=== PATIENT | male | born 1955 | race Caucasian/White ===

== ENCOUNTER → 2016-09-17 | Outpatient (CLI) | payer OTHER, MEDICARE ==
[~2016-09-17] VITALS: Ht 177.8 cm; Wt 96.7 kg
[~2016-09-17] MED LIST: ADULT LOW DOSE81 MG PO; ALPRAZOLAM 0.50.5 M1 PO; AMITRIPTYLINE H25 M2 PO; AMITRIPTYLINE H50 M2 PO; AMITRIPTYLINE H50 M3 PO; AMLODIPINE BESYL5 MG PO; ANDROGEL1.25 GM TD; ASA5UEC PO; AZOR 10-20 MG1 EACH PO; AZOR 10-40 MG1 EACH; BENICAR40 MG PO; BONIVA150 MG PO; BYSTOLIC 5 MG5 M1 PO; CARBAMAZEPINE200 M2 PO; CLONAZEPAM 1 MG1 M1 PO; DOLOPHINE HCL5 MG PO; FENOFIBRATE PO; FENOFIBRATE160 MG PO; FISH OIL 1,001000 M2; FISHOIL PO; HYDROCHLOROTHIA25 M2 PO; HYDROCODON-ACE1 EACH PO; HYDROCODONE-AP1 EAC2 PO; IRBESARTAN300 MG PO; METHADONE HCL5 MG PO; METRONIDAZOLE IV; MIRTAZAPINE45 MG PO; MULTIVITAMINS PO; NASONEX17 GM INH; NASONEX17 GM NS; NORCO 5-325 TA1 EACH PO; NORVASC10 MG PO; OMEPRAZOLE 20 M20 M1 PO; ONDANSETRON HCL4 M3 PO; PAROXETINE HCL20 MG PO; PAROXETINE HCL40 MG PO; PERCOCET 5-3251 EACH PO; PLAVIX 75 MG TA75 MG PO; PRAVACHOL40 MG PO; PRILOSEC 20 MG20 MG PO; ROCEPHIN 1 GM VL1 G1 IV; VITAMIN D35000 UNI1 PO; ZOCOR 20 MG TAB20 M1 PO; ZYPREXA5 MG PO
--- NOTE | ~2016-09-17 | HPC ---
[facility] [place] [address] PAIN MANAGEMENT CONSULTATION Name: MERCY COOK [facility] [id number] Admission: 09/17/16 Attend Phys: Georges Poole MD Discharge: Date of : 51 Report #: [id number] THIS REPORT FOR: //name// CC: Kyara Poole DATE OF REGISTRATION: 09/17/2016. Followup visit for atypical facial pain, trigeminal neuralgia. The patient returns to pain clinic for medication. I have been providing medication now for several years. This medication is working well. He denies any significant side effects. His current dose of medications, methadone 5 mg taken once a day. He reports to me today his pain is a 6, that is a fairly steady number for him. It never goes away completely, it is a chronic discomfort and numbness and aching on the right side of his face, cheek and eye. SOCIAL HISTORY: The patient is disabled. He reports to me that close relative just killed himself and I offered emotional support today during clinic. PHYSICAL EXAMINATION: VITAL SIGNS: Blood pressure 161/80, heart rate 62. BMI is 30.6. Tenderness across the area of the right cheek bone in the V2 distribution is noted. Only mild allodynia. IMPRESSION: 1. Chronic intractable facial pain with features of trigeminal neuralgia. There does have some atypical facial pain as well, but all appears to be neuropathic. 2. Management of high risk medication. I renewed his small dose per day of methadone under terms of our opioid agreement, we reviewed that agreement as well as CDC guidelines today. Followup visit planned in 3 months. By: [id number] [id number] Georges Poole MD /nt
[2016-09-17 13:29] VITALS: BP 161/88
== END | disposition home or self-care (01) ==
LOC: PAIN 07:31
DX: G50.0 Trigeminal neuralgia (principal); G89.29 Other chronic pain; Z87.891 Personal history of nicotine dependence

== ENCOUNTER → 2016-12-20 | Outpatient (CLI) | payer OTHER, MEDICARE ==
[~2016-12-20] VITALS: Ht 177.8 cm; Wt 99.1 kg
--- NOTE | ~2016-12-20 | HPC ---
[facility] [place] [address] [place] [address] PAIN MANAGEMENT CONSULTATION Name: MERCY COOK Room #: REG CL Josh#: [id number] Admission: 12/20/16 Attend Phys: Georges Poole MD Discharge: Date of : 51 Report #: [id number] THIS REPORT FOR: //name// CC: Kyara Poole DATE OF SERVICE: 12/20/2016 DATE OF REGISTRATION: 12/20/2016 Followup visit for atypical facial pain and trigeminal neuralgia. This is a followup visit for the patient who was quite stable on his current dose of medication. He has had no significant changes in his health history since I last saw him on 09/17/2016. Under terms of our opioid agreement, he receives methadone 5 mg per day, clonazepam 1 mg per day. Takes amitriptyline 50 mg at bedtime. This combination has done a nice job of quieting the nerve pain in his face and he reports that his pain score today is a 4/10. It still is exacerbated by changes in weather and stress, but he is currently satisfied with his treatment. We reflected back on when he first came to the clinic. He was very anxious, catastrophic and his pain was poorly controlled. He has now been on medication under terms of our agreement since 2010 and we have reduced his methadone dose over those years. PHYSICAL EXAMINATION: GENERAL: He is pleasant, alert and oriented; shows no signs of anxiety, depression or ____ medication. VITAL SIGNS: His blood pressure is 137/87, heart rate 60 and BMI is 33.3. There is no facial allodynia or discomfort today. IMPRESSION: 1. Atypical facial pain with features of trigeminal neuralgia. 2. Management of high risk medication. PLAN: Follow up in the pain clinic in 3 months. Medications were renewed as described above. By: [id number] Georges Poole MD /nt
[2016-12-20 14:32] VITALS: BP 137/87
== END ==
LOC: PAIN 07:26
DX: G50.0 Trigeminal neuralgia (principal); Z87.891 Personal history of nicotine dependence

== ENCOUNTER → 2017-06-27 | Outpatient (CLI) | payer OTHER, MEDICARE ==
[~2017-06-27] VITALS: Ht 177.8 cm; Wt 93.0 kg
--- NOTE | ~2017-06-27 | HPC ---
[facility] [place] [address] [address] [place] [address] PAIN MANAGEMENT CONSULTATION Name: SAUD COOK Room #: REG [facility] Julia.#: [id number] Admission: 06/27/17 Attend Phys: Georges Poole MD Discharge: Date of : 51 Report #: [id number] THIS REPORT FOR: //name// CC: Kyara Poole DATE OF SERVICE: 06/27/2017 Followup visit for chronic headaches and atypical facial pain with features of trigeminal neuralgia. This is a routine followup visit for Saud whom I see at 3-month intervals. He has been on a stable dose of methadone 5 mg once daily, amitriptyline 50 mg at bedtime and clonazepam 1 mg now for several years. We initially started him on methadone before 2012 and found that he has been able to completely manage his pain without hospitalization or ER visits. He remains active. Review of his functional score today shows that he has minimal impact. His highest score is 5/10. He is at very low risk for addiction. He reports today that he is continuing to do well. Pain is oftentimes increased by stress and he has noted that cold weather striking his face will trigger his trigeminal pain. He does not smoke nor use alcohol. PHYSICAL EXAMINATION: VITAL SIGNS: Blood pressure is 146/85, heart rate 65, respirations 16. BMI is 29.4. He has minimal discomfort and no allodynia today. IMPRESSION: 1. Chronic atypical facial pain with features of trigeminal neuralgia. 2. Management of high risk medications under the terms of written opioid agreement. PLAN: 1. Methadone was renewed at 5 mg once daily. This calculates to a morphine milligram equivalent of 20 MME. 2. Renew amitriptyline 50 mg at bedtime for chronic pain, depression and anxiety. 3. Use of benzodiazepine and clonazepam is controversial; however, he has been on it now for treatment of his psychiatric issues and depression for roughly 5 years or more while continuing on an opioid with no complications or evidence of oversedation. We will continue it as I believe that plays a role in his wellness and overall wellbeing. [address] [address] PAIN MANAGEMENT CONSULTATION Name: COOKSAUD Room #: REG CLThelma Dumont.#: [id number] Admission: 06/27/17 Attend Phys: Georges Poole MD Discharge: Date of : 51 Report #: [id number] I talked about remaining active and engaged in diversion activities. I plan to see him back in the pain clinic in followup in 3 months. <ELECTRONICALLY SIGNED> By: Georges Poole MD 07/17/17 1640 [id number] Georges Poole MD /nt
[2017-06-27 09:55] VITALS: BP 146/85
== END ==
LOC: PAIN 06:53
DX: G89.29 Other chronic pain (principal); G50.0 Trigeminal neuralgia; F11.90 Opioid use, unspecified, uncomplicated

== ENCOUNTER → 2017-09-26 | Outpatient (CLI) | payer OTHER, MEDICARE ==
[~2017-09-26] VITALS: Ht 177.8 cm; Wt 92.4 kg
--- NOTE | ~2017-09-26 | HPC ---
[facility] [place] [address] [address] [place] [address] PAIN MANAGEMENT CONSULTATION Name: MERCY COOK [facility] #: [facility] [id number] Admission: 09/26/17 Attend Phys: Georges Poole MD Discharge: Date of : 51 Report #: [id number] THIS REPORT FOR: //name// CC: Kyara Poole DATE OF SERVICE: 09/26/2017 The patient returns to pain clinic today for renewal of his medication. He has chronic headaches and atypical facial pain as well as some features of trigeminal neuralgia. We are fortunate that he has been treated very effectively with one 5 mg methadone tablet taken daily. He has been on this medication through our clinic now for over 5 years with no difficulties, no misuse, abuse, no lost prescriptions. Overall, he credits most of his improvement to the methadone. He in addition is given amitriptyline 50 mg at bedtime, which may be helpful for neuropathic pain. He has an anxiety disorder and sleep problems and has used clonazepam chronically at 1 mg at bedtime with no problems. We reviewed his MME at 20. He would like to continue on his medication. PHYSICAL EXAMINATION: His blood pressure 146/85, heart rate 65, BMI is 29. He has no discomfort or allodynia of the face. He chews without difficulty. There is no difficulty or tenderness of the temporomandibular joint. IMPRESSION: 1. 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 2. Chronic intractable pain syndrome with medication management utilizing methadone. 3. History of depression and anxiety, stable at this point. PLAN: I will continue his methadone and 3 months of medication were provided. I have also ordered for him his amitriptyline and clonazepam, which I have provided for him on a chronic basis. He is doing well. Followup visit planned in 3 months. By: [id number] Georges Poole MD /nt
[2017-09-26 10:09] VITALS: BP 144/84
== END ==
LOC: PAIN 05:36
DX: G89.4 Chronic pain syndrome (principal); G50.1 Atypical facial pain; F41.9 Anxiety disorder, unspecified; F32.9 Major depressive disorder, single episode, unspecified

== ENCOUNTER → 2018-03-27 | Outpatient (CLI) | payer OTHER, MEDICARE ==
[~2018-03-27] VITALS: Ht 177.8 cm; Wt 99.7 kg
--- NOTE | ~2018-03-27 | HPC ---
[facility] [address] [address] PAIN MANAGEMENT CONSULTATION Name: MERCY COOK [facility] #[facility] [id number] Admission: 03/27/18 Attend Phys: Shireen Ruby Discharge: Date of : 51 Report #: [id number] THIS REPORT FOR: //name// CC: Shireen Poole MD DATE OF SERVICE: 03/27/2018 REASON FOR THE VISIT TODAY: Followup for his trigeminal neuralgia. HISTORY OF PRESENT ILLNESS: This gentleman returns today for a renewal of his medication management, methadone, which he takes 5 mg once a day. He tells me that it is very beneficial and helping with his trigeminal neuralgia. He tells me that he takes it in the morning because he is able to sleep at night without difficulties. He tells me that his average pain score is 3-4 with his medications. The weather does make it worse and stress, but the medications are very helpful for his constant achy pain in the right side of his face, cheek and eye. His morphine milliequivalents of his methadone is 20 milliequivalents, which we converted today. ALLERGIES: THE PATIENT IS ALLERGIC TO BONIVA. MEDICATIONS: The patient's current medicine methadone 5 mg daily, clonazepam 1 mg daily, amitriptyline 50 mg at bedtime, Zofran as needed, Norvasc 10 mg daily, HCTZ 25 mg daily, irbesartan 300 mg daily, vitamin D3 daily, Paxil 20 mg at bedtime, multivitamin, pravastatin 40 mg at bedtime, Plavix 75 mg daily and a baby aspirin daily. PQRS: The patient's PQRS, 1. He denies osteoarthritis or rheumatoid arthritis. 2. Height 5 feet 10 inches, weight 219. 3. BMI is 31.5. 4. Vital signs: Blood pressure 150/84, pulse is 62, respirations 16, oxygen level is 98%. 5. Pain score is 3-4. 6. Fall risk. Denies dizziness, does not need help walking or standing and has not fallen in the last 3 months. 7. The patient is on Plavix for a blood thinner and does have a history of hypertension. 8. Opioid therapy greater than 6 weeks with opioid signed contract on the chart. 9. His risk assessment tool is low and his functional assessment . 10. The patient denies recreational drug use. He is a former smoker and does not drink alcohol. [facility] [address] [place] [address] PAIN MANAGEMENT CONSULTATION Name: MERCY COOK Room #: REG CL Josh#: [id number] Admission: 03/27/18 Attend Phys: Shireen Ruby Discharge: Date of : 51 Report #: [id number] We checked the [facility] Prescription Drug Monitoring Program and the patient is filling appropriate medications only from Dr. Georges Poole at 1 pharmacy. It was also noted that a drug screen had been several years ago, so we will obtain a buccal specimen today to check his drug screen. The patient is agreeable with this. PHYSICAL EXAMINATION: GENERAL: This is a well-developed, well-nourished 62-year-old gentleman that appears his stated age. Neurologic: Mild to light allodynia along the right side of his face in a V2 distribution from his right eye into his cheek and to his lip. IMPRESSION: 1. Atypical facial pain with trigeminal neuralgia this involves the second division of the trigeminal nerve. 2. 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 3. History of depression and anxiety, stable on medications. We reviewed the fact that opiate medications are being used to provide analgesia adequate to support activities of daily living, not attempting to achieve a specific pain score on the 0-10 Visual Analog Scale. The current opiate medications are providing sufficient analgesia to allow the patient to participate in activities of daily living. The patient is not exhibiting any aberrant behavior suggestive of drug diversion. The patient is not having any adverse reactions to medications. The patient is not suffering from daytime somnolence or mental acuity changes. The patient is managing opiate-induced constipation with appropriate ejhe-qwq-nxcoqzn agents and dietary considerations. The patient was counseled on concern for caution with operating a motor vehicle while using opiate medications. A physical exam was performed and the patient's functional status was evaluated. All patients with back pain were advised against the bed rest greater than 4 days and were advised to return to normal activities. Pain score assessment was noted and the treatment plan was reviewed with the patient. All current medications, both prescribed and OTC were reviewed and reconciled on the electronic medical record. Tobacco screening was accomplished and smoking cessation was advised when indicated. BMI was noted and diet/exercise modification was recommended for all patients following outside normal parameters. I reviewed with the patient today their responsibilities to safeguard prescription medications, reviewed their responsibility to utilize medications only as prescribed by the physician. They are to seek and receive pain medications only from 1 physician group ([facility]). They are to use 1 pharmacy and keep the clinic informed if they change pharmacies. Their responsibilities include making followup visits in a timely fashion and to avoid [facility] [address] [place] [address] PAIN MANAGEMENT CONSULTATION Name: MERCY COOK Room #: REG CLThelma Moreno#: [id number] Admission: 03/27/18 Attend Phys: Shireen Ruby Discharge: Date of : 51 Report #: [id number] abrupt discontinuation of medication usage. Their responsibilities further include bringing their medications (bottles from the pharmacy with residual pills) to the visit for possible confirmation of pill counts and the patient understands it is their responsibility to submit to random drug screens to ensure both that the medications prescribed are present, and that no other controlled substances are present. All prescriptions provided today were generated electronically. PLAN: 1. The patient was seen today for refill of his opioid medicine, methadone. The patient takes 5 mg 1 tablet in the morning. This controls his pain. The patient would like a refill of this medication. The patient was provided methadone 5 mg #30 to be released today in 4-week and an 8-week, also given a script of clonazepam 1 mg #90 with one additional refill for 3-month supply. No Elavil was needed today. He has refills of that medication. 2. The patient was screened using the buccal swabs for his drug use. There has not been one on the chart for a while, so we would like to have a yearly drug screen on him. The patient was agreeable with that and provided us with the specimen today. 3. The patient will be seen in 3-month followup by myself and then after that he will see Dr. Georges Poole again unless he needs to see us earlier if symptoms arise. 4. The patient seen in collaboration today with Dr. Georges Poole. <ELECTRONICALLY SIGNED> By: Shireen Ruby 03/31/18 0721 [id number] Shireen Ruby /denita
[2018-03-27 09:40] VITALS: BP 150/84
== END ==
LOC: PAIN 06:16
DX: G50.0 Trigeminal neuralgia (principal); G50.1 Atypical facial pain; G89.4 Chronic pain syndrome; F32.9 Major depressive disorder, single episode, unspecified; F41.9 Anxiety disorder, unspecified

== ENCOUNTER → 2018-06-26 | Outpatient (CLI) | payer OTHER, MEDICARE ==
[~2018-06-26] VITALS: Ht 177.8 cm; Wt 97.6 kg
[2018-06-26 12:37] VITALS: BP 161/86
--- NOTE | 2018-06-26 12:41 | NUR ---
Pain Clinic Assessment: 1. History of Osteoarthritis: NONE History of Rheumatoid Arthritis: NONE 2. Height: 5 ft. 10 in. 177.8 cm. Weight: 215.2 lb. oz. 97.614 kg. Patient's BMI: 30.9 3. Vital Signs: BP: 161/86 Pulse: 69 Resp: 18 Temp: 02 Sat: 96 ECG Mon: 4. Pain Intensity: 5 5. Fall Risk: Dizziness: N Needs help standing or walking: N Fallen in the last 3 months: N Fall risk comments: 6. Patient on Blood Thinner: Clopidogrel Bisulf(Plavix 7. History of Hypertension: Y 8. Opioid Therapy greater than 6 weeks: Y Opiate Contract Signed: 09/16/14 9. Risk Assessment Tool Provided: LOW RISK 05/22 10. Functional Assessment Tool: 11. Recreational Drug Use: Never Drug Type: Tobacco Use: Former Smoker Tobacco Type: Amount or Packs/day: How Many Years: Alcohol Use: No Frequency: Quant:
--- NOTE | 2018-06-27 09:43 | HPC ---
[facility] [place] [address] PAIN MANAGEMENT CONSULTATION Name: MERCY COOK [facility] #: [facility] [id number] Admission: 06/26/18 Attend Phys: Shireen Ruby Discharge: Date of : 51 Report #: [id number] THIS REPORT FOR: //name// CC: Shireen Belle DATE OF SERVICE: 06/26/2018 CHIEF COMPLAINT: Trigeminal neuralgia. HISTORY OF PRESENT ILLNESS: This is a very pleasant gentleman, 62-year-old, who returns to the pain clinic for his right cheek and mouth pain from his trigeminal neuralgia. He rates his pain score as 5/10 today. He tells me that the weather changes make it worse as well as stress, but the medications are very helpful for his constant, aching pain. He says that the methadone is very helpful and would like a refill of that today. ALLERGIES: BONIVA. CURRENT MEDICATIONS: Methadone 5 mg daily, clonazepam 1 mg daily, amitriptyline 50 mg at bedtime, amlodipine 10 mg daily, hydrochlorothiazide 25 mg daily, Irbesartan 300 mg daily, vitamin D3 daily, Paxil 20 mg at bedtime, multivitamin daily, pravastatin 40 mg at bedtime, Plavix 75 mg daily and aspirin 81 mg daily. PQRS: 1. He denies osteoarthritis or rheumatoid arthritis. 2. Height is 5 feet 10, weight is 215 and BMI is 30.9. 3. Vital signs 161/86, pulse is 69, respirations 18 and oxygen sat is 96. 4. Pain score is 5/10. 5. He denies dizziness. He does not need help walking or standing. He has not fallen in the last 3 months. 6. He is on Plavix and does take hypertension medicines. 7. Opioid therapy is greater than 6 weeks; therefore, an opioid signed contract is on the chart. The patient's risk assessment tool is low. His functional assessment is 17/70. 8. Recreational drug use, he denies. He is a former smoker and does not drink alcohol. We did check the prescription monitoring system. The patient is filling appropriately from Dr. Georges Poole, with no aberrant behaviors noted. He has a drug screen from past March. PHYSICAL EXAMINATION: GENERAL: This is a well-developed, well-nourished and well-hydrated 62-year-old gentleman, who appears his stated age. He is alert and orientated and is a well historian. NEUROLOGIC: Htpv-bn-xydvo allodynia along the right side of his face, from his right eye to his cheek. [address] [address] PAIN MANAGEMENT CONSULTATION Name: MERCY COOK Room #: REG [facility] Josh#: [id number] Admission: 06/26/18 Attend Phys: Shireen Ruby Discharge: Date of : 51 Report #: [id number] MUSCULOSKELETAL: The patient has no problems with musculoskeletal. He is able to move about freely without any difficulty. IMPRESSION: 1. Atypical facial pain with trigeminal neuralgia. 2. Chronic intractable pain syndrome, with methadone management for neuropathic symptoms. 3. History of depression and anxiety, stable with his current medication regimen. We reviewed the fact that opiate medications are being used to provide analgesia adequate to support activities of daily living, not attempting to achieve a specific pain score on the 0-10 Visual Analog Scale. The current opiate medications are providing sufficient analgesia to allow the patient to participate in activities of daily living. The patient is not exhibiting any aberrant behavior suggestive of drug diversion. The patient is not having any adverse reactions to medications. The patient is not suffering from daytime somnolence or mental acuity changes. The patient is managing opiate-induced constipation with appropriate ufeo-box-hxlhyol agents and dietary considerations. The patient was counseled on concern for caution with operating a motor vehicle while using opiate medications. A physical exam was performed and the patient's functional status was evaluated. All patients with back pain were advised against the bed rest greater than 4 days and were advised to return to normal activities. Pain score assessment was noted and the treatment plan was reviewed with the patient. All current medications, both prescribed and OTC were reviewed and reconciled on the electronic medical record. Tobacco screening was accomplished and smoking cessation was advised when indicated. BMI was noted and diet/exercise modification was recommended for all patients following outside normal parameters. I reviewed with the patient today their responsibilities to safeguard prescription medications, reviewed their responsibility to utilize medications only as prescribed by the physician. They are to seek and receive pain medications only from 1 physician group ( [facility]). They are to use 1 pharmacy and keep the clinic informed if they change pharmacies. Their responsibilities include making followup visits in a timely fashion and to avoid abrupt discontinuation of medication usage. Their responsibilities further include bringing their medications (bottles from the pharmacy with residual pills) to the visit for possible confirmation of pill counts and the patient understands it is their responsibility to submit to random drug screens to ensure both that the medications prescribed are present, and that no other controlled substances are present. All prescriptions provided today were generated electronically. [address] [address] PAIN MANAGEMENT CONSULTATION Name: MERCY COOK Room #: REG DENNY DumontSridhar#: [id number] Admission: 06/26/18 Attend Phys: Shireen Ruby Discharge: Date of : 51 Report #: [id number] PLAN: 1. We discussed treatment options with this patient today. He tells me that he has been doing fairly well with his current methadone dose. He takes one tablet in the morning and then he takes his clonazepam 1 mg at bedtime and the patient would like refills of this medication. No scripts needed for his amitriptyline today. Scripts for methadone 5 mg #30 to be released today for an 8-week and then a 90-day prescription of clonazepam 1 mg at bedtime, with one additional refill were given. 2. The patient was seen in collaboration today with Dr. Georges Poole and the patient will follow up with me in 3 months. <ELECTRONICALLY SIGNED> By: Shireen Ruby 06/27/18 0943 [id number] Shireen Ruby /nt
== END ==
LOC: PAIN 08:20
DX: G50.0 Trigeminal neuralgia (principal); G50.1 Atypical facial pain; G89.4 Chronic pain syndrome; F32.9 Major depressive disorder, single episode, unspecified; F41.9 Anxiety disorder, unspecified; Z79.899 Other long term (current) drug therapy

== ENCOUNTER → 2018-09-22 | Outpatient (CLI) | payer OTHER, BC ==
[~2018-09-22] VITALS: Ht 177.8 cm; Wt 99.1 kg
[2018-09-22 13:09] VITALS: BP 150/90
--- NOTE | 2018-09-22 13:25 | NUR ---
Pain Clinic Assessment: 1. History of Osteoarthritis: NONE History of Rheumatoid Arthritis: NONE 2. Height: 5 ft. 10 in. 177.8 cm. Weight: 218.4 lb. oz. 99.066 kg. Patient's BMI: 31.3 3. Vital Signs: BP: 150/90 Pulse: 60 Resp: 16 Temp: 02 Sat: 98 ECG Mon: 4. Pain Intensity: 5 5. Fall Risk: Dizziness: N Needs help standing or walking: N Fallen in the last 3 months: N Fall risk comments: 6. Patient on Blood Thinner: Clopidogrel Bisulf(Plavix 7. History of Hypertension: Y 8. Opioid Therapy greater than 6 weeks: Y Opiate Contract Signed: 09/16/14 9. Risk Assessment Tool Provided: LOW RISK 1 10. Functional Assessment Tool: 11. Recreational Drug Use: Never Drug Type: Tobacco Use: Former Smoker Tobacco Type: Amount or Packs/day: How Many Years: Alcohol Use: No Frequency: Quant:
--- NOTE | 2018-09-23 14:37 | HPC ---
[facility] [place] [address] PAIN MANAGEMENT CONSULTATION Name: MERCY COOK Room #: REG [facility] Josh#: [id number] Admission: 09/22/18 ������������������ Attend Phys: Shireen Ruby Discharge: ������������������ Date of : 51 Report #: [id number] THIS REPORT FOR: //name// CC: Shireen Vossfer Barbra DATE OF SERVICE: 09/22/2018 CHIEF COMPLAINT: Trigeminal neuralgia. HISTORY OF PRESENT ILLNESS: This is a very pleasant 63-year-old gentleman who returns to the pain clinic today for medication refill for his chronic trigeminal neuralgia. Today, the patient complains of pain of 5/10, which is slightly higher than normal, but he has not taken his pain medicine today due to some nausea feeling. He has most of his pain in his right cheek and mouth, worse with the weather and stress, but his medication is very helpful in controlling his pain. He tells me he is having some stressful times with his daughter, who has been having a hard month, but his pain has been under control still with his medications. He would like a refill of his meds today. ALLERGIES: BONIVA. CURRENT MEDICATIONS: Clonazepam 1 mg at bedtime, methadone 5 mg daily, amitriptyline 50 mg at bedtime, Zofran as needed, Norvasc 10 mg daily, hydrochlorothiazide 25 daily, irbesartan 300 mg daily, vitamin D daily, Paxil 20 mg at bedtime, multivitamin daily, Pravachol 40 mg at bedtime, Plavix 75 mg daily and aspirin 81 mg daily. PQRS: 1. The patient denies any history of osteoarthritis or rheumatoid arthritis. 2. Height is 5 feet 10 inches, weight is 218 and BMI is 31. 3. Vital signs, 150/90, pulse is 60, respirations 16 and oxygen sat is 98. 4. Pain score is 5/10. 5. Dizziness, he denies. He does not need help walking or standing. He has not fallen in the last 3 months. 6. The patient is on Plavix. He does take medicines for hypertension as well. 7. Opioid therapy is greater than 6 weeks; therefore, an opioid signed contract is on the chart. His risk assessment tool is low. Functional assessment is . 8. Recreational drug use, he denies. He is a former smoker and does not drink alcohol. We did check the prescription monitoring system. The patient is filling appropriately for his medications and is on due time for them today. We did have a recent drug screen on the chart, which is appropriate for his medications. [address] [address] PAIN MANAGEMENT CONSULTATION Name: COOKMERCY Room #: REG DENNY Moreno#: [id number] Admission: 09/22/18 ������������������ Attend Phys: Shireen Ruby Discharge: ������������������ Date of : 51 Report #: [id number] PHYSICAL EXAMINATION: GENERAL: This is a well-developed, well-nourished and well-hydrated 63-year-old gentleman who appears his stated age. He is alert and orientated. NEUROLOGIC: He has mild allodynia on the right side of his face from his right eye to his cheek. The patient does complain of pain with weather changes that affect his face. IMPRESSION: 1. Atypical facial pain with trigeminal neuralgia. 2. 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 3. History of depression and anxiety, on current regimen and stable. We reviewed the fact that opiate medications are being used to provide analgesia adequate to support activities of daily living, not attempting to achieve a specific pain score on the 0-10 Visual Analog Scale. The current opiate medications are providing sufficient analgesia to allow the patient to participate in activities of daily living. The patient is not exhibiting any aberrant behavior suggestive of drug diversion. The patient is not having any adverse reactions to medications. The patient is not suffering from daytime somnolence or mental acuity changes. The patient is managing opiate-induced constipation with appropriate evcq-oif-oxzpefi agents and dietary considerations. The patient was counseled on concern for caution with operating a motor vehicle while using opiate medications. A physical exam was performed and the patient's functional status was evaluated. All patients with back pain were advised against the bed rest greater than 4 days and were advised to return to normal activities. Pain score assessment was noted and the treatment plan was reviewed with the patient. All current medications, both prescribed and OTC were reviewed and reconciled on the electronic medical record. Tobacco screening was accomplished and smoking cessation was advised when indicated. BMI was noted and diet/exercise modification was recommended for all patients following outside normal parameters. I reviewed with the patient today their responsibilities to safeguard prescription medications, reviewed their responsibility to utilize medications only as prescribed by the physician. They are to seek and receive pain medications only from 1 physician group ( [facility]). They are to use 1 pharmacy and keep the clinic informed if they change pharmacies. Their responsibilities include making followup visits in a timely fashion and to avoid abrupt discontinuation of medication usage. Their responsibilities further include bringing their medications (bottles from the pharmacy with residual pills) to the visit for possible confirmation of pill counts and the patient understands it is their responsibility to submit to random drug screens to [address] [address] PAIN MANAGEMENT CONSULTATION Name: MERCY COOK Room #: REG DENNY Moreno#: [id number] Admission: 09/22/18 ������������������ Attend Phys: Shireen Ruby Discharge: ������������������ Date of : 51 Report #: [id number] ensure both that the medications prescribed are present, and that no other controlled substances are present. All prescriptions provided today were generated electronically. PLAN: 1. We discussed the treatment options with the patient today. The patient is doing quite well on his current medication regimen, taking methadone 5 mg once a day in the morning. He does not usually split the dose; he takes the entire one in the morning and does quite well. Prescriptions were written for #30 tablets today, for today, 4-week and 8-week release. 2. Clonazepam 1 mg at bedtime, #90 given with one additional refill for a total of 6-month supply and amitriptyline 50 mg 1 at bedtime, #90 with one additional refill for a 6-month supply. 3. The patient will return in 3 months' time period for his methadone. He is agreeable with this. The patient's current morphine milliequivalent is 15-20 morphine mEq, which is below the CDC guidelines. 4. Dr. Georges Poole did come and see the patient and also collaborated care. ��������������������������������������������� <ELECTRONICALLY SIGNED> ���������������������������������������� By: Shireen Ruby ��������������������������������������������� 09/23/18 1437 [id number] Shireen Ruby /denita
== END ==
LOC: PAIN 06:57
DX: G50.0 Trigeminal neuralgia (principal); G89.29 Other chronic pain; I10 Essential (primary) hypertension; F41.9 Anxiety disorder, unspecified; F32.9 Major depressive disorder, single episode, unspecified; Z88.8 Allergy status to other drugs, medicaments and biological substances; Z79.899 Other long term (current) drug therapy; Z79.891 Long term (current) use of opiate analgesic; Z87.891 Personal history of nicotine dependence

== ENCOUNTER → 2018-12-25 | Outpatient (CLI) | payer OTHER, BC ==
[~2018-12-25] VITALS: Ht 154.9 cm; Wt 100.1 kg
[2018-12-25 09:04] VITALS: BP 172/87
--- NOTE | 2018-12-25 09:06 | NUR ---
Pain Clinic Assessment: 1. History of Osteoarthritis: NONE History of Rheumatoid Arthritis: NONE 2. Height: 5 ft. 1 in. 154.9 cm. Weight: 220.6 lb. oz. 100.064 kg. Patient's BMI: 41.7 3. Vital Signs: BP: 172/87 Pulse: 60 Resp: 18 Temp: 02 Sat: 95 ECG Mon: 4. Pain Intensity: 3 5. Fall Risk: Dizziness: N Needs help standing or walking: N Fallen in the last 3 months: N Fall risk comments: 6. Patient on Blood Thinner: Clopidogrel Bisulf(Plavix 7. History of Hypertension: Y 8. Opioid Therapy greater than 6 weeks: Y Opiate Contract Signed: 09/16/14 9. Risk Assessment Tool Provided: LOW RISK 1 10. Functional Assessment Tool: 11. Recreational Drug Use: Never Drug Type: Tobacco Use: Former Smoker Tobacco Type: Amount or Packs/day: How Many Years: Alcohol Use: No Frequency: Quant:
--- NOTE | 2018-12-26 08:06 | HPC ---
[facility] [address] [place] [address] PAIN MANAGEMENT CONSULTATION Name: MERCY COOK Room #: REG CL Josh#: [id number] Admission: 12/25/18 Attend Phys: Shireen Ruby Discharge: Date of : 51 Report #: [id number] THIS REPORT FOR: //name// CC: Shireen Vossfer Barbra DATE OF SERVICE: 12/25/2018 CHIEF COMPLAINT: Trigeminal neuralgia. HISTORY OF PRESENT ILLNESS: This is a very pleasant 63-year-old gentleman who returns to the pain clinic today for refill of his medication that he uses to treat his trigeminal neuralgia in his right cheek on right side of his mouth. He reports a pain score of 3/10 today. He tells me that the weather and stress does increase his pain though his medications are very beneficial in controlling his nerve pain. He tells me that he takes it in the morning and finds that, that controls his pain throughout the day and while he is sleeping, he does not have any pain issues. The patient tells me he recently went on vacation and has been traveling from this summer. He had not had any problems with his pain while he was gone. He enjoyed his time. He has been enjoying his snf with his family. ALLERGIES: BONIVA. LIST OF MEDICATIONS: Amitriptyline 50 mg at bedtime, methadone 5 mg daily, clonazepam 1 mg half in the morning, half at night, Norvasc, hydrochlorothiazide, irbesartan, vitamin D, Paxil, multivitamin, Pravachol, Plavix and aspirin. PQRS: 1. He denies history of osteoarthritis or rheumatoid arthritis. 2. Height is 5 feet 10 inches, weight is 218, BMI is 31. 3. Vital signs: 172/87, retaken it was 143/82, pulse is 60, respirations 18, oxygen sat is 95, pain score is 3/10. 4. Fall risk. Denies dizziness, does not need help walking or standing, has not fallen in the last 3 months. 5. The patient is on Plavix. He does take medicine for hypertension as well. 6. Opioid therapy is greater than 6 weeks; therefore, an opiate signed contract is on the chart. His risk assessment tool is low. Functional assessment is . 7. Recreational drug use, he denies. He is a former smoker and does not drink alcohol. We did check the prescription monitoring system. The patient is filling appropriately for his medications. He is due for those today. There is a [address] [address] PAIN MANAGEMENT CONSULTATION Name: MERCY COOK [id number] Admission: 12/25/18 Attend Phys: Shireen Ruby Discharge: Date of : 51 Report #: [id number] recent drug screen on the chart that is positive for the medications that he is taking. PHYSICAL EXAMINATION: GENERAL: This is a well-developed, well-nourished 63-year-old gentleman who appears his stated age. He is alert and orientated, placing his pain score today at 2/10. NEUROLOGIC: He has some odynia on his right side of his face. The patient complains of pain with weather changes that affect his gum and came with complaints of tenderness in the right gum line today. IMPRESSION: 1. Atypical facial pain with trigeminal neuralgia. 2. History of depression and anxiety, stable on medications. 3. Chronic intractable pain syndrome with management of methadone for his neuropathic symptoms. We reviewed the fact that opiate medications are being used to provide analgesia adequate to support activities of daily living, not attempting to achieve a specific pain score on the 0-10 Visual Analog Scale. The current opiate medications are providing sufficient analgesia to allow the patient to participate in activities of daily living. The patient is not exhibiting any aberrant behavior suggestive of drug diversion. The patient is not having any adverse reactions to medications. The patient is not suffering from daytime somnolence or mental acuity changes. The patient is managing opiate-induced constipation with appropriate apjr-vbi-ziijlou agents and dietary considerations. The patient was counseled on concern for caution with operating a motor vehicle while using opiate medications. A physical exam was performed and the patient's functional status was evaluated. All patients with back pain were advised against the bed rest greater than 4 days and were advised to return to normal activities. Pain score assessment was noted and the treatment plan was reviewed with the patient. All current medications, both prescribed and OTC were reviewed and reconciled on the electronic medical record. Tobacco screening was accomplished and smoking cessation was advised when indicated. BMI was noted and diet/exercise modification was recommended for all patients following outside normal parameters. I reviewed with the patient today their responsibilities to safeguard prescription medications, reviewed their responsibility to utilize medications only as prescribed by the physician. They are to seek and receive pain medications only from 1 physician group ([facility]). They are to use 1 pharmacy and keep the clinic informed if they change pharmacies. Their responsibilities include making followup visits in a timely fashion and to avoid abrupt discontinuation of medication usage. Their responsibilities further [facility] [address] [place] [address] PAIN MANAGEMENT CONSULTATION Name: MERCY COOK Room #: ANGEL Moreno#: [id number] Admission: 12/25/18 Attend Phys: Shireen Ruby Discharge: Date of : 51 Report #: [id number] include bringing their medications (bottles from the pharmacy with residual pills) to the visit for possible confirmation of pill counts and the patient understands it is their responsibility to submit to random drug screens to ensure both that the medications prescribed are present, and that no other controlled substances are present. All prescriptions provided today were generated electronically. PLAN: 1. We discussed treatment options with the patient today. The patient is doing quite well on his current methadone of 5 mg once a day. This places him in the very low on the CDC guidelines of 20 morphine milliequivalents per day. Scripts given today for #30 to release today for in 8 weeks. 2. Scripts given for clonazepam 1 mg #90 with one additional refill. This is a 3-month supply with one additional refill. 3. He is not in need of amitriptyline today. It does look like his primary care doctor has written that some though we had given him a prescription in September. The patient will check to see about that medication if we need to continue writing that or not. 4. The patient is seen in collaboration with Dr. Georges Poole who did see the patient as well today. The patient will return in 3 months. <ELECTRONICALLY SIGNED> By: Shireen Ruby 12/26/1806 1022 [id number] Shireen Ruby /denita
== END ==
LOC: PAIN 06:47
DX: G50.0 Trigeminal neuralgia (principal); F32.9 Major depressive disorder, single episode, unspecified; F41.9 Anxiety disorder, unspecified; G89.4 Chronic pain syndrome; Z88.8 Allergy status to other drugs, medicaments and biological substances; Z79.899 Other long term (current) drug therapy; Z79.82 Long term (current) use of aspirin

== ENCOUNTER → 2019-04-02 | Outpatient (CLI) | payer OTHER, BC ==
[~2019-04-02] VITALS: Ht 177.8 cm; Wt 102.4 kg
[2019-04-02 08:55] VITALS: BP 141/81
--- NOTE | 2019-04-02 09:02 | NUR ---
Pain Clinic Assessment: 1. History of Osteoarthritis: NONE History of Rheumatoid Arthritis: NONE 2. Height: 5 ft. 10 in. 177.8 cm. Weight: 225.8 lb. oz. 102.422 kg. Patient's BMI: 32.4 3. Vital Signs: BP: 141/81 Pulse: 62 Resp: 16 Temp: 02 Sat: 96 ECG Mon: 4. Pain Intensity: 4 5. Fall Risk: Dizziness: N Needs help standing or walking: N Fallen in the last 3 months: N Fall risk comments: 6. Patient on Blood Thinner: Clopidogrel Bisulf(Plavix 7. History of Hypertension: Y 8. Opioid Therapy greater than 6 weeks: Y Opiate Contract Signed: 09/16/14 9. Risk Assessment Tool Provided: LOW RISK 1 10. Functional Assessment Tool: 11. Recreational Drug Use: Never Drug Type: Tobacco Use: Former Smoker Tobacco Type: Amount or Packs/day: How Many Years: Alcohol Use: No Frequency: Quant:
--- NOTE | 2019-04-02 16:13 | HPC ---
[facility] [address] [place] [address] PAIN MANAGEMENT CONSULTATION Name: MERCY COOK [facility] [id number] Admission: 04/02/19 Attend Phys: Shireen Ruby Discharge: Date of : 51 Report #: [id number] THIS REPORT FOR: //name// CC: Shireen Poole MD DATE OF SERVICE: 04/02/2019 CHIEF COMPLAINT: Trigeminal neuralgia. HISTORY OF PRESENT ILLNESS: This is a very pleasant 63-year-old gentleman who returns to the Pain Clinic today for refill of his medications that he uses to help treat his ongoing right mouth and right cheek pain as a result of trigeminal neuralgia. He reports his pain score is slightly higher today due to weather changes. It is a 4/10. It is usually an aching, constant pain that is worse with stress, eating and weather changes. He finds his medications very beneficial. He takes methadone 1 time a day. He denies any problems with daytime sleepiness or constipation from these medications. ALLERGIES: BONIVA. CURRENT LIST OF MEDICINES: Methadone 5 mg daily, clonazepam 1 mg at bedtime, amitriptyline 50 mg at bedtime, amlodipine 5 mg daily, hydrochlorothiazide 25 mg daily, irbesartan 300 mg daily, vitamin D, Paxil 20 mg at bedtime, multivitamin, pravastatin 40 mg at bedtime, Plavix 75 mg daily and aspirin daily. PQRS: 1. He denies a history of osteoarthritis or rheumatoid arthritis. 2. Height is 5 feet 10 inches, weight is 225. BMI is 32. 3. Vital signs 141/81, pulse is 62, respirations 16, oxygen sat is 96. 4. Pain score is 4/10. 5. Denies dizziness, does not need help walking or standing, has not fallen in the last 3 months. 6. The patient does take a blood thinner, Plavix. He also has medicines for hypertension. 7. Opiate therapy is greater than 6 weeks; therefore, an opioid signed contract is on the chart. His risk assessment tool is low. Functional assessment is . 8. Recreational drug use, he denies. He is a former smoker and does not drink alcohol. We did check the prescription monitoring system. The patient is filling appropriately for his medications. He is due today to fill his methadone. There is a recent drug screen on the chart, but we will recheck that at his next [facility] [address] [place] [address] PAIN MANAGEMENT CONSULTATION Name: MERCY COOK Room #: REG CL Josh#: [id number] Admission: 04/02/19 Attend Phys: Shireen Ruby Discharge: Date of : 51 Report #: [id number] visit randomly. According to the prescription monitoring system, the patient's morphine milliequivalent is 20 per day. PHYSICAL EXAMINATION: GENERAL: This is a well-developed, well-nourished 63-year-old gentleman who appears his stated age. He is alert and orientated, placing his pain score at 4/10. HEENT: Normocephalic, atraumatic. Extraocular eye muscles are intact. Mucous membranes are moist. NEUROLOGIC: He has some allodynia on his right side of his face. Pain increased with weather changes and his right gum line today complains of tenderness. Tenderness across his right cheek bone in the V2 distribution is noted. IMPRESSION: 1. Atypical facial pain with trigeminal neuralgia. 2. History of depression and anxiety, stable on medications. 3. Chronic intractable pain syndrome with medication management of methadone for his neuropathic symptoms. We reviewed the fact that opiate medications are being used to provide analgesia adequate to support activities of daily living, not attempting to achieve a specific pain score on the 0-10 Visual Analog Scale. The current opiate medications are providing sufficient analgesia to allow the patient to participate in activities of daily living. The patient is not exhibiting any aberrant behavior suggestive of drug diversion. The patient is not having any adverse reactions to medications. The patient is not suffering from daytime somnolence or mental acuity changes. The patient is managing opiate-induced constipation with appropriate quuw-lhd-rvgoxfd agents and dietary considerations. The patient was counseled on concern for caution with operating a motor vehicle while using opiate medications. RECOMMENDATIONS: 1. We discussed treatment options with the patient today. The patient is doing quite well on his current methadone without any problems with side effects of constipation or daytime sleepiness. He is able to be active as he would like and finds the methadone very beneficial. Scripts E-signed today for methadone 5 mg every day, #30 for 3 months. 2. The patient is not needing clonazepam refill today. He has a prescription at home that he will take to the pharmacy. 3. I E-scribed amitriptyline 50 mg 1 at bedtime for 90 with one additional refill. [facility] [address] [place] [address] PAIN MANAGEMENT CONSULTATION Name: MERCY COOK Room #: REG DENNY Josh#: [id number] Admission: 04/02/19 Attend Phys: Shireen Ruby Discharge: Date of : 51 Report #: [id number] 4. The patient is seen in collaboration with Dr. Georges Poole. The patient will follow up in 3 months. <ELECTRONICALLY SIGNED> By: Shireen Ruby 04/02/19 1613 [id number] [id number] Shireen Ruby /nt
== END ==
LOC: PAIN 06:52
DX: G50.0 Trigeminal neuralgia (principal); F32.9 Major depressive disorder, single episode, unspecified; F41.9 Anxiety disorder, unspecified; Z79.899 Other long term (current) drug therapy

== ENCOUNTER → 2019-06-29 | Outpatient (CLI) | payer OTHER, BC ==
[~2019-06-29] VITALS: Ht 177.8 cm; Wt 103.4 kg
[2019-06-29 09:41] VITALS: BP 158/94
--- NOTE | 2019-06-29 09:54 | NUR ---
Pain Clinic Assessment: 1. History of Osteoarthritis: NONE History of Rheumatoid Arthritis: NONE 2. Height: 5 ft. 10 in. 177.8 cm. Weight: 228.0 lb. oz. 103.420 kg. Patient's BMI: 32.7 3. Vital Signs: BP: 158/94 Pulse: 60 Resp: 18 Temp: 02 Sat: 99 ECG Mon: 4. Pain Intensity: 4 5. Fall Risk: Dizziness: N Needs help standing or walking: N Fallen in the last 3 months: N Fall risk comments: 6. Patient on Blood Thinner: Clopidogrel Bisulf(Plavix 7. History of Hypertension: Y 8. Opioid Therapy greater than 6 weeks: Y Opiate Contract Signed: 09/16/14 9. Risk Assessment Tool Provided: LOW RISK 1 10. Functional Assessment Tool: 11. Recreational Drug Use: Never Drug Type: Tobacco Use: Former Smoker Tobacco Type: Amount or Packs/day: How Many Years: Alcohol Use: No Frequency: Quant:
--- NOTE | 2019-06-30 08:19 | HPC ---
[facility] [place] [address] PAIN MANAGEMENT CONSULTATION Name: MERCY COOK Room #: REG [facility].#: [id number] Admission: 06/29/19 Attend Phys: Shireen Ruby Discharge: Date of : 51 Report #: [id number] THIS REPORT FOR: cc: Kyara Belle MD, Jennifer S. MD Hocker, Amanda CNS ~ THIS REPORT FOR: //name// CC: Shireen Belle DATE OF SERVICE: 06/29/2019 CHIEF COMPLAINT: Trigeminal neuralgia. HISTORY OF PRESENT ILLNESS: This is a very pleasant 63-year-old gentleman who returns to the pain clinic today for refill of his medications that he uses for his ongoing right mouth, right cheek trigeminal neuralgia. He feels that it is a constant, aching pain; sometimes, it is worse due to stress and weather changes. Overall, he is reporting it a 4/10 today. He feels the medication is beneficial. Today, he is complaining of some dry mouth issues. He has been taking Biotene spray and that has been beneficial. He reports this dryness may come in any time throughout the day. He denies any problems with constipation or daytime sleepiness as a result of his medications. ALLERGIES: BONIVA. CURRENT LIST OF MEDICATIONS: Methadone 5 mg daily, amitriptyline 50 mg at bedtime, clonazepam 1 mg at bedtime, amlodipine, hydrochlorothiazide, irbesartan, vitamin D, Paxil, multivitamin, Pravachol, Plavix and aspirin. PQRS: 1. He denies any history of osteo or rheumatoid arthritis. 2. Height is 5 feet 10 inches, weight is 228, BMI is 32. 3. Vital signs; blood pressure 158/94, pulse is 60, respirations 18, oxygen sat is 99. 4. Pain score is 4/10. 5. Denies dizziness, does not need help walking or standing, has not fallen in the last 3 months. The patient does take Plavix as well as other antihypertensive medicines. His opioid therapy is greater than 6 weeks; therefore, an opioid signed contract is on the chart. Risk assessment tool is low. Functional assessment is . 6. Recreational drug use, he denies. He is a former smoker and does not drink alcohol. According to the prescription monitoring system, the patient is filling [facility] [address] [place] [address] PAIN MANAGEMENT CONSULTATION Name: MERCY COOK Room #: REG CLI Halima#: [id number] Admission: 06/29/19 Attend Phys: Shireen Ruby Discharge: Date of : 51 Report #: [id number] Georges Poole. There is no aberrant fills. His current morphine milliequivalent per day is 15, well below the CDC guidelines. PHYSICAL EXAMINATION: GENERAL: This is a well-developed, well-nourished 63-year-old gentleman, placing his pain score at 4/10 today. HEENT: Normocephalic, atraumatic. Extraocular eye muscles are intact. Mucous membranes are dry at times. NEUROLOGICAL: He has allodynia on the right side of his face. Pain increases on the right gum line with weather changes. It is tender at the cheek bone in the V2 distribution. IMPRESSION: 1. Atypical facial pain with trigeminal neuralgia. 2. History of depression and anxiety, stable on his medications. 3. Chronic intractable pain with medication management, on methadone for his neuropathic symptoms. We reviewed the fact that opiate medications are being used to provide analgesia adequate to support activities of daily living, not attempting to achieve a specific pain score on the 0-10 Visual Analog Scale. The current opiate medications are providing sufficient analgesia to allow the patient to participate in activities of daily living. The patient is not exhibiting any aberrant behavior suggestive of drug diversion. The patient is not having any adverse reactions to medications. The patient is not suffering from daytime somnolence or mental acuity changes. The patient is managing opiate-induced constipation with appropriate ywtj-xvw-spqciah agents and dietary considerations. The patient was counseled on concern for caution with operating a motor vehicle while using opiate medications. A physical exam was performed and the patient's functional status was evaluated. All patients with back pain were advised against the bed rest greater than 4 days and were advised to return to normal activities. Pain score assessment was noted and the treatment plan was reviewed with the patient. All current medications, both prescribed and OTC were reviewed and reconciled on the electronic medical record. Tobacco screening was accomplished and smoking cessation was advised when indicated. BMI was noted and diet/exercise modification was recommended for all patients following outside normal parameters. I reviewed with the patient today their responsibilities to safeguard prescription medications, reviewed their responsibility to utilize medications only as prescribed by the physician. They are to seek and receive pain medications only from 1 physician group ([facility]). They are to use 1 pharmacy and keep the clinic informed if they change pharmacies. Their responsibilities include making followup visits in a timely fashion and to avoid [address] [address] PAIN MANAGEMENT CONSULTATION Name: MERCY COOK Room #: REG DENNY Moreno#: [id number] Admission: 06/29/19 Attend Phys: Shireen Ruby Discharge: Date of : 51 Report #: [id number] abrupt discontinuation of medication usage. Their responsibilities further include bringing their medications (bottles from the pharmacy with residual pills) to the visit for possible confirmation of pill counts and the patient understands it is their responsibility to submit to random drug screens to ensure both that the medications prescribed are present, and that no other controlled substances are present. All prescriptions provided today were generated electronically. PLAN: 1. We discussed treatment options with the patient. The patient is doing quite well on his current methadone therapy. We will refill his 5 mg, #30, taking it once a day for today and 4-week and 8-week releases. 2. The patient is given a script for clonazepam 1 mg, #90 with 1 additional refill; this is of 3 months' supply. The patient takes these at bedtime. 3. We discussed his amitriptyline, which he is not needing this medication today and dry mouth, the patient is using Biotene spray. I explained that amitriptyline is a very drying medication, that is one of its side effects. The patient does not experience this dryness first thing in the morning, but throughout the day. Again, we discussed how the medication is in his system throughout the day. He has seen his dentist on . I encouraged him to discuss with them if he is having any gum or teeth issues related to his oral mucosa dryness. The patient verbalizes understanding. 4. The patient is seen in collaboration with Dr. Georges Poole, who discussed care today and sent his prescriptions. <ELECTRONICALLY SIGNED> By: Shireen Ruby 06/30/19 0819 [id number] Shireen Ruby /nt
== END ==
LOC: PAIN 06:43
DX: G50.0 Trigeminal neuralgia (principal); G89.29 Other chronic pain; F32.9 Major depressive disorder, single episode, unspecified; Z88.8 Allergy status to other drugs, medicaments and biological substances; F41.9 Anxiety disorder, unspecified; Z79.899 Other long term (current) drug therapy

== ENCOUNTER → 2019-10-05 | Outpatient (CLI) | payer OTHER, BC ==
[~2019-10-05] VITALS: Ht 170.2 cm; Wt 101.7 kg
--- NOTE | ~2019-10-05 | HPC ---
[facility] [address] [place] [address] PAIN MANAGEMENT CONSULTATION Name: MERCY COOK Room #: REG [facility].#: [id number] Admission: 10/05/19 Attend Phys: Georges Poole MD Discharge: Date of : 51 Report #: [id number] THIS REPORT FOR: cc: Kyara Belle MD, Jennifer S. MD Morgan,Georges Durán MD ~ CC: Kyara Poole DATE OF SERVICE: 10/05/2019 Followup visit for chronic atypical facial pain/trigeminal neuralgia. Medication management under terms of written opioid agreement. It is now 10 years since the patient was initiated on methadone 5 mg daily. In combination with amitriptyline and clonazepam at bedtime, he has managed his trigeminal neuralgia very effectively. He reports pain scores of around 3, very manageable. He is here today for renewal of his medications. We reviewed his use on the prescription drug monitoring program information and no unexpected entries. His dose is quite low. He takes 1 methadone tablet a day. He denies side effects. He carefully safeguards medicine. It keeps his pain under control in combination with his other medicines. PQRS is negative for osteoarthritis. He is overweight with BMI of 35.1. We discussed weight control measures. Blood pressure 154/93, heart rate 61, respirations 16, O2 sat 99%. He remains on Plavix since his CVA. He has a history of hypertension. His opioid agreement was reviewed. Last signed in 2014. His risk assessment score is 1 suggesting that he is at low risk for addiction. We have seen no evidence of that in his 10 years of use of the medication as a medicine to control this devastating chronic pain syndrome. Denies use of tobacco or alcohol. PHYSICAL EXAMINATION: Pleasant, alert and oriented, without signs of anxiety, depression or other mental issues. He complains of mild allodynia along the right side of the face with light touch in the V2 distribution. IMPRESSION: 1. Chronic trigeminal neuralgia pain, which is well controlled with current regimen of medications. 2. Depression and anxiety, in remission. Medication use appropriate. 3. Opioid agreement. [facility] [address] [place] [address] PAIN MANAGEMENT CONSULTATION Name: MERCY COOK Room #: REG CLI [facility].#: [id number] Admission: 10/05/19 Attend Phys: Georges Poole MD Discharge: Date of : 51 Report #: [id number] PLAN: Medications were renewed under terms of our agreement. Followup visit scheduled for 3 months. All questions were answered. By: [id number] Georges Poole MD /nt
[2019-10-05 10:10] VITALS: BP 154/93
--- NOTE | 2019-10-05 10:22 | NUR ---
Pain Clinic Assessment: 1. History of Osteoarthritis: NONE History of Rheumatoid Arthritis: NONE 2. Height: 5 ft. 7 in. 170.2 cm. Weight: 224.2 lb. oz. 101.697 kg. Patient's BMI: 35.1 3. Vital Signs: BP: 154/93 Pulse: 61 Resp: 16 Temp: 02 Sat: 99 ECG Mon: 4. Pain Intensity: 3 5. Fall Risk: Dizziness: N Needs help standing or walking: N Fallen in the last 3 months: Y Fall risk comments: 6. Patient on Blood Thinner: Clopidogrel Bisulf(Plavix 7. History of Hypertension: Y 8. Opioid Therapy greater than 6 weeks: Y Opiate Contract Signed: 09/16/14 9. Risk Assessment Tool Provided: LOW RISK-1 10. Functional Assessment Tool: 11. Recreational Drug Use: Never Drug Type: Tobacco Use: Former Smoker Tobacco Type: Amount or Packs/day: How Many Years: Alcohol Use: No Frequency: Quant:
== END ==
LOC: PAIN 06:56
DX: G50.0 Trigeminal neuralgia (principal); G50.1 Atypical facial pain; F11.20 Opioid dependence, uncomplicated; F41.8 Other specified anxiety disorders; Z79.899 Other long term (current) drug therapy

== ENCOUNTER → 2019-12-28 | Outpatient (CLI) | payer OTHER, BC ==
[~2019-12-28] VITALS: Ht 170.2 cm; Wt 98.9 kg
[~2019-12-28] MED LIST changes: +LEVO-T25 MCG PO
[2019-12-28 09:04] VITALS: BP 151/97
--- NOTE | 2019-12-28 09:14 | NUR ---
Pain Clinic Assessment: 1. History of Osteoarthritis: NONE History of Rheumatoid Arthritis: NONE 2. Height: 5 ft. 7 in. 170.2 cm. Weight: 218.0 lb. oz. 98.884 kg. Patient's BMI: 34.1 3. Vital Signs: BP: 151/97 Pulse: 64 Resp: 18 Temp: 02 Sat: 98 ECG Mon: 4. Pain Intensity: 5 5. Fall Risk: Dizziness: N Needs help standing or walking: N Fallen in the last 3 months: Y Fall risk comments: 6. Patient on Blood Thinner: Clopidogrel Bisulf(Plavix 7. History of Hypertension: Y 8. Opioid Therapy greater than 6 weeks: Y Opiate Contract Signed: 09/16/14 9. Risk Assessment Tool Provided: LOW RISK-1 10. Functional Assessment Tool: 11. Recreational Drug Use: Never Drug Type: Tobacco Use: Former Smoker Tobacco Type: Amount or Packs/day: How Many Years: Alcohol Use: No Frequency: Quant:
--- NOTE | 2019-12-28 13:33 | HPC ---
[facility] [address] [address] PAIN MANAGEMENT CONSULTATION Name: MERCY COOK Room #: REG [facility].#: [id number] Admission: 12/28/19 Attend Phys: Shireen Ruby Discharge: Date of : 51 Report #: [id number] THIS REPORT FOR: cc: Kyara Belle MD, Jennifer S. MD Hocker, Amanda CNS ~ CC: Georges Poole MD DATE OF SERVICE: 12/28/2019 CHIEF COMPLAINT: Chronic atypical facial pain, trigeminal neuralgia. HISTORY OF PRESENT ILLNESS: This is a very pleasant 64-year-old gentleman who returns to the pain clinic today for refill of his opioid medications that he uses to help treat his right face and cheek pain. He feels that it is an aching, constant pain, today it is slightly elevated. Pain score of 5/10. He is not sure why it is higher than his normal. He feels that the medications are very beneficial as well as popsicles. He states that stress does increase his pain. His has recently retired that may be an increased stressor. They are adjusting to their time together at home. He denies any problems with constipation or daytime somnolence as a result of his opioid medications. Today, he would like refills of his medication. ALLERGIES: BONIVA. CURRENT LIST OF MEDICATIONS: Levothyroxine, methadone 5 mg daily, clonazepam 1 mg at bedtime, amitriptyline 50 mg at bedtime, amlodipine, hydrochlorothiazide, irbesartan, vitamin D, paroxetine, multivitamin, Pravachol, Plavix and aspirin. PQRS: 1. Negative for osteoarthritis or rheumatoid arthritis. 2. Height is 5 feet 7 inches, weight is 218, BMI is 34. Vital signs 151/97, pulse is 64, respirations 18, oxygen sat is 98, pain score is 5/10. Denies dizziness, does not need help walking or standing, has not fallen in the last 3 months. The patient remains on Plavix as well as medication for hypertension. Opioid therapy is greater than 6 weeks; therefore, an opioid signed contract is on the chart. Risk assessment tool is low. Functional assessment . 3. Recreational drug use, he denies. He is a former smoker and does not drink alcohol. According to the prescription monitoring system, the patient is due to fill his medications next week, filling them in a timely fashion. His morphine milliequivalent according to the CDC guidelines is 20 MME. PHYSICAL EXAMINATION: GENERAL: This is alert and orientated gentleman who appears his stated age. He [address] [address] PAIN MANAGEMENT CONSULTATION Name: JOEYMERCY Yoseph Room #: REG DENNY Moreno#: [id number] Admission: 12/28/19 Attend Phys: Shireen Ruby Discharge: Date of : 51 Report #: [id number] is well-developed, well-nourished, rating his pain score at 5/10 today. HEENT: Normocephalic, atraumatic. Extraocular eye muscles are intact. He does have mild allodynia along the right side of his face following the V2 dermatomal distribution. He does have a mask on. Pain is increased at the right gumline. IMPRESSION: 1. Atypical facial pain with trigeminal neuralgia, chronic in nature. 2. Depression and anxiety. 3. Opioid medications under terms of written agreement. We reviewed the fact that opiate medications are being used to provide analgesia adequate to support activities of daily living, not attempting to achieve a specific pain score on the 0-10 Visual Analog Scale. The current opiate medications are providing sufficient analgesia to allow the patient to participate in activities of daily living. The patient is not exhibiting any aberrant behavior suggestive of drug diversion. The patient is not having any adverse reactions to medications. The patient is not suffering from daytime somnolence or mental acuity changes. The patient is managing opiate-induced constipation with appropriate nafw-pid-zupaapa agents and dietary considerations. The patient was counseled on concern for caution with operating a motor vehicle while using opiate medications. PLAN: 1. We discussed treatment options with the patient today. We will refill his opioid medications, methadone 5 mg, #30, for today, 4 and 8-week supply. 2. We will collect a random urine drug screen on this patient. It has been greater than a year since our last random screen. 3. The patient denies any overmedication feeling or constipation as a result of his medications. The patient is seen today in collaboration with Dr. Georges Poole. <ELECTRONICALLY SIGNED> By: Shireen Ruby 12/28/19 1333 [id number] Shireen Ruby /denita
== END ==
LOC: PAIN 06:43
PROVIDERS: ATTEND Clinical Nurse Specialist Adult Health
DX: G50.1 Atypical facial pain (principal); G50.0 Trigeminal neuralgia; F41.8 Other specified anxiety disorders; F11.20 Opioid dependence, uncomplicated; Z88.8 Allergy status to other drugs, medicaments and biological substances; Z79.899 Other long term (current) drug therapy

== ENCOUNTER → 2020-02-15 | Outpatient (CLI) | payer OTHER, BC | LOC: SJCVCIMAG 10:22 | PROVIDERS: ATTEND Internal Medicine Cardiovascular Disease | DX: I25.10 Atherosclerotic heart disease of native coronary artery without angina pectoris (principal); I73.9 Peripheral vascular disease, unspecified; R09.89 Other specified symptoms and signs involving the circulatory and respiratory systems; I10 Essential (primary) hypertension; E78.00 Pure hypercholesterolemia, unspecified; I63.9 Cerebral infarction, unspecified; I65.23 Occlusion and stenosis of bilateral carotid arteries; Z79.899 Other long term (current) drug therapy; Z87.891 Personal history of nicotine dependence ==

== ENCOUNTER → 2020-04-04 | Outpatient (CLI) | payer OTHER, BC ==
[~2020-04-04] VITALS: Ht 170.2 cm; Wt 98.5 kg
[2020-04-04 08:40] VITALS: BP 153/81
--- NOTE | 2020-04-05 08:05 | HPC ---
[facility] [address] [address] [place] [address] PAIN MANAGEMENT CONSULTATION Name: MERCY COOK Room #: REG [facility] Josh#: [id number] Admission: 04/04/20 Attend Phys: Shireen Ruby Discharge: Date of : 51 Report #: [id number] THIS REPORT FOR: cc: Kyara Belle MD, Jennifer S. MD Hocker, Amanda CNS ~ CC: Shireen Poole MD DATE OF SERVICE: 04/04/2020 CHIEF COMPLAINT: Trigeminal neuralgia, chronic atypical facial pain. HISTORY OF PRESENT ILLNESS: This is a very pleasant 64-year-old gentleman who returns to the pain clinic today for refill of his medications that we use to help treat his ongoing trigeminal neuralgia that is located on his right side of his face into his cheek and mouth. He reports an aching discomfort rating a pain score today of 4/10. He states that stress does aggravate his pain, but he has been doing quite well recently with his current regimen and trying to minimize stress at home. The medication has been very beneficial and he denies any problems with constipation or daytime somnolence. The patient states that his has recently restarted working, which has decreased some of his stressful situation at home. He also reports that he has had a flu vaccination and is planning on having the coronavirus vaccine when it becomes available. ALLERGIES: BONIVA. CURRENT LIST OF MEDICATIONS: Methadone 5 mg daily, levothyroxine, clonazepam, amitriptyline, amlodipine, hydrochlorothiazide, irbesartan, vitamin D, paroxetine, multivitamin, Pravachol, Plavix and aspirin. PQRS: 1. He denies rheumatoid or osteoarthritis. 2. Height is 5 feet 7 inches, weight is 217, BMI is 34. 3. Vital signs 153/81, pulse is 62, respirations 18, oxygen sat is 99%. 4. Pain score is 4/10. 5. Denies dizziness, does not need help walking or standing, has not fallen in the last 3 months. 6. The patient is on Plavix as well as medications for hypertension. 7. Opioid therapy is greater than 6 weeks; therefore, an opioid signed contract is on the chart. Risk assessment is low. Functional assessment . 8. Recreational drug use, he denies. He is a former smoker [place] [address] PAIN MANAGEMENT CONSULTATION Name: JOEYMERCY Hameed Room #: REG CLI Josh#: [id number] Admission: 04/04/20 Attend Phys: Shireen Ruby Discharge: Date of : 51 Report #: [id number] According to the prescription monitoring system, the patient is due to fill his medications today. His morphine mEq is under 20 MME. There is a recent drug screen on the chart that is from his previous visit. It does show his medications as well as THC that he was encouraged to use by his sleep doctor to aid in his sleep. He does use this nightly in a very small amount and enables him to sleep. PHYSICAL EXAMINATION: GENERAL: This is alert and orientated, pleasant 64-year-old gentleman who appears his stated age, placing his current pain score 4/10. He is well-developed, well-nourished. HEENT: Normocephalic, atraumatic. Extraocular eye muscles are intact. He has mild allodynia on the right side of his face following the V2 dermatomal distribution. He is wearing a mask. SKIN: His nail bed on his left hand appears to have a fungal infection and has split, no discomfort or redness noted. IMPRESSION: 1. Atypical facial pain with trigeminal neuralgia, chronic in nature. 2. Depression and anxiety. 3. Opioid medications under terms of written agreement. 4. Possible fungal nail infection. We reviewed the fact that opiate medications are being used to provide analgesia adequate to support activities of daily living, not attempting to achieve a specific pain score on the 0-10 Visual Analog Scale. The current opiate medications are providing sufficient analgesia to allow the patient to participate in activities of daily living. The patient is not exhibiting any aberrant behavior suggestive of drug diversion. The patient is not having any adverse reactions to medications. The patient is not suffering from daytime somnolence or mental acuity changes. The patient is managing opiate-induced constipation with appropriate vnyc-bij-aghwrmh agents and dietary considerations. The patient was counseled on concern for caution with operating a motor vehicle while using opiate medications. A physical exam was performed and the patient's functional status was evaluated. All patients with back pain were advised against the bed rest greater than 4 days and were advised to return to normal activities. Pain score assessment was noted and the treatment plan was reviewed with the patient. All current medications, both prescribed and OTC were reviewed and reconciled on the electronic medical record. Tobacco screening was accomplished and smoking cessation was advised when indicated. BMI was noted and diet/exercise modification was recommended for all patients following outside normal parameters. I reviewed with the patient today their responsibilities to [address] [address] PAIN MANAGEMENT CONSULTATION Name: MERCY COOK Room #: REG DENNY Moreno#: [id number] Admission: 04/04/20 Attend Phys: Shireen Ruby Discharge: Date of : 51 Report #: [id number] prescription medications, reviewed their responsibility to utilize medications only as prescribed by the physician. They are to seek and receive pain medications only from 1 physician group ( [facility]). They are to use 1 pharmacy and keep the clinic informed if they change pharmacies. Their responsibilities include making followup visits in a timely fashion and to avoid abrupt discontinuation of medication usage. Their responsibilities further include bringing their medications (bottles from the pharmacy with residual pills) to the visit for possible confirmation of pill counts and the patient understands it is their responsibility to submit to random drug screens to ensure both that the medications prescribed are present, and that no other controlled substances are present. All prescriptions provided today were generated electronically. PLAN: 1. We discussed treatment options with the patient today. We did review his urine drug screen that was taken at his last visit that did show marijuana. The patient states he has been encouraged to take this from his sleep doctor to help with his insomnia. He takes 3-4 puffs nightly. Once it is legalized in [place] he will try to obtain gummies. The patient has been utilizing this for years in the very low dose. He is on methadone at a very low dose as well as a benzodiazepine. The patient is aware of all these interactions. 2. We will have Dr. Georges Poole sent his methadone 5 mg, #30, for today,4 an 8-week supply as well as his clonazepam 1 mg at bedtime, #90 with one additional refill and amitriptyline 50 mg, #90 with one additional refill. 3. We did discuss his possible fungal infection on his left hand, encouraging him to buy some dfcu-wbw-qsctnqh medication reminding him that they do take a long time to heal. If it does continue to worsen to contact his primary care doctor. 4. The patient is seen today in collaboration with Dr. Georges Poole. <ELECTRONICALLY SIGNED> By: Shireen Ruby 04/05/20 0805 [id number] Shieren Ruby /nt
== END ==
LOC: PAIN 06:52
PROVIDERS: ATTEND Clinical Nurse Specialist Adult Health
DX: G50.0 Trigeminal neuralgia (principal); G50.1 Atypical facial pain; F41.8 Other specified anxiety disorders; F11.20 Opioid dependence, uncomplicated; Z88.8 Allergy status to other drugs, medicaments and biological substances; Z79.899 Other long term (current) drug therapy

== ENCOUNTER → 2020-07-07 | Outpatient (CLI) | payer OTHER, BC ==
[~2020-07-07] VITALS: Ht 170.2 cm; Wt 94.3 kg
[2020-07-07 10:36] VITALS: BP 158/96
--- NOTE | 2020-07-07 10:47 | NUR ---
Pain Clinic Assessment: 1. History of Osteoarthritis: NONE History of Rheumatoid Arthritis: NONE 2. Height: 5 ft. 7 in. 170.2 cm. Weight: 207.8 lb. oz. 94.258 kg. Patient's BMI: 32.5 3. Vital Signs: BP: 158/96 Pulse: 75 Resp: 16 Temp: 02 Sat: 97 ECG Mon: 4. Pain Intensity: 5 5. Fall Risk: Dizziness: N Needs help standing or walking: N Fallen in the last 3 months: N Fall risk comments: 6. Patient on Blood Thinner: Clopidogrel Bisulf(Plavix 7. History of Hypertension: Y 8. Opioid Therapy greater than 6 weeks: Y Opiate Contract Signed: 09/16/14 9. Risk Assessment Tool Provided: LOW RISK-1 10. Functional Assessment Tool: 11. Recreational Drug Use: Never Drug Type: Tobacco Use: Former Smoker Tobacco Type: Amount or Packs/day: How Many Years: Alcohol Use: No Frequency: Quant:
== END ==
LOC: PAIN 07:00
PROVIDERS: ATTEND Clinical Nurse Specialist Adult Health
DX: G50.0 Trigeminal neuralgia (principal); G50.1 Atypical facial pain; F41.8 Other specified anxiety disorders; F11.20 Opioid dependence, uncomplicated; Z88.8 Allergy status to other drugs, medicaments and biological substances; Z79.899 Other long term (current) drug therapy

== ENCOUNTER → 2020-10-03 | Outpatient (CLI) | payer OTHER, BC ==
[~2020-10-03] VITALS: Ht 170.2 cm; Wt 91.4 kg
[2020-10-03 08:45] VITALS: BP 132/79
--- NOTE | 2020-10-03 08:53 | NUR ---
Pain Clinic Assessment: 1. History of Osteoarthritis: NONE History of Rheumatoid Arthritis: NONE 2. Height: 5 ft. 7 in. 170.2 cm. Weight: 201.6 lb. oz. 91.445 kg. Patient's BMI: 31.6 3. Vital Signs: BP: 132/79 Pulse: 53 Resp: 14 Temp: 02 Sat: 100 ECG Mon: 4. Pain Intensity: 5 5. Fall Risk: Dizziness: N Needs help standing or walking: N Fallen in the last 3 months: N Fall risk comments: 6. Patient on Blood Thinner: Clopidogrel Bisulf(Plavix 7. History of Hypertension: Y 8. Opioid Therapy greater than 6 weeks: Y Opiate Contract Signed: 09/16/14 9. Risk Assessment Tool Provided: LOW RISK-1 10. Functional Assessment Tool: 11. Recreational Drug Use: Never Drug Type: Tobacco Use: Former Smoker Tobacco Type: Amount or Packs/day: How Many Years: Alcohol Use: No Frequency: Quant:
== END ==
LOC: PAIN 07:08
PROVIDERS: ATTEND Clinical Nurse Specialist Adult Health
DX: G50.0 Trigeminal neuralgia (principal); R51.9 Headache, unspecified; G89.29 Other chronic pain; I10 Essential (primary) hypertension; F32.9 Major depressive disorder, single episode, unspecified; F41.9 Anxiety disorder, unspecified; Z79.891 Long term (current) use of opiate analgesic; Z87.891 Personal history of nicotine dependence

== ENCOUNTER → 2020-11-14 | Outpatient (CLI) | payer OTHER, BC | LOC: SJCVCIMAG 08:51 | PROVIDERS: ATTEND Internal Medicine Cardiovascular Disease | DX: I65.23 Occlusion and stenosis of bilateral carotid arteries (principal); E78.5 Hyperlipidemia, unspecified; I10 Essential (primary) hypertension; I25.10 Atherosclerotic heart disease of native coronary artery without angina pectoris; E11.9 Type 2 diabetes mellitus without complications ==

== ENCOUNTER → 2020-12-05 | Outpatient (CLI) | payer OTHER, BC ==
[~2020-12-05] VITALS: Ht 177.8 cm; Wt 88.3 kg
[2020-12-05 10:51] VITALS: BP 157/84
--- NOTE | 2020-12-05 10:59 | NUR ---
Pain Clinic Assessment: 1. History of Osteoarthritis: NONE History of Rheumatoid Arthritis: NONE 2. Height: 5 ft. 10 in. 177.8 cm. Weight: 194.6 lb. oz. 88.270 kg. Patient's BMI: 27.9 3. Vital Signs: BP: 157/84 Pulse: 50 Resp: 18 Temp: 02 Sat: 100 ECG Mon: 4. Pain Intensity: 5 5. Fall Risk: Dizziness: N Needs help standing or walking: N Fallen in the last 3 months: N Fall risk comments: 6. Patient on Blood Thinner: Clopidogrel Bisulf(Plavix 7. History of Hypertension: Y 8. Opioid Therapy greater than 6 weeks: Y Opiate Contract Signed: 09/16/14 9. Risk Assessment Tool Provided: LOW RISK-10 10. Functional Assessment Tool: 11. Recreational Drug Use: Never Drug Type: Tobacco Use: Former Smoker Tobacco Type: Amount or Packs/day: How Many Years: Alcohol Use: No Frequency: Quant:
== END ==
LOC: PAIN 06:54
PROVIDERS: ATTEND Clinical Nurse Specialist Adult Health
DX: Z76.0 Encounter for issue of repeat prescription (principal); G50.0 Trigeminal neuralgia; G89.29 Other chronic pain; F41.8 Other specified anxiety disorders; R51.9 Headache, unspecified; I10 Essential (primary) hypertension; Z79.891 Long term (current) use of opiate analgesic; Z79.899 Other long term (current) drug therapy; Z87.891 Personal history of nicotine dependence; Z79.01 Long term (current) use of anticoagulants; Z88.8 Allergy status to other drugs, medicaments and biological substances

== ENCOUNTER → 2021-03-09 | Outpatient (CLI) | payer OTHER, BC ==
[~2021-03-09] VITALS: Ht 177.8 cm; Wt 88.3 kg
[~2021-03-09] MED LIST changes: +KLOR-CON 10 ER10 MEQ PO
[2021-03-09 09:37] VITALS: BP 152/88
--- NOTE | 2021-03-09 09:59 | NUR ---
Pain Clinic Assessment: 1. History of Osteoarthritis: NONE History of Rheumatoid Arthritis: NONE 2. Height: 5 ft. 10 in. 177.8 cm. Weight: 194.6 lb. oz. 88.270 kg. Patient's BMI: 27.9 3. Vital Signs: BP: 152/88 Pulse: 56 Resp: 16 Temp: 02 Sat: 99 ECG Mon: 4. Pain Intensity: 3 5. Fall Risk: Dizziness: N Needs help standing or walking: N Fallen in the last 3 months: N Fall risk comments: 6. Patient on Blood Thinner: Clopidogrel Bisulf(Plavix 7. History of Hypertension: Y 8. Opioid Therapy greater than 6 weeks: Y Opiate Contract Signed: 09/16/14 9. Risk Assessment Tool Provided: LOW RISK-1 10. Functional Assessment Tool: 11. Recreational Drug Use: Current within past 3 mos Drug Type: marijuana Tobacco Use: Former Smoker Tobacco Type: Amount or Packs/day: How Many Years: Alcohol Use: No Frequency: Quant:
== END ==
LOC: PAIN 06:57
PROVIDERS: ATTEND Anesthesiology Pain Medicine
DX: G89.29 Other chronic pain (principal); G50.0 Trigeminal neuralgia; F41.8 Other specified anxiety disorders; Z79.82 Long term (current) use of aspirin; Z79.899 Other long term (current) drug therapy; Z88.8 Allergy status to other drugs, medicaments and biological substances

== ENCOUNTER → 2021-06-05 | Outpatient (CLI) | payer OTHER, BC ==
[~2021-06-05] VITALS: Ht 177.8 cm; Wt 90.3 kg
[2021-06-05 08:59] VITALS: BP 146/86
--- NOTE | 2021-06-05 09:02 | NUR ---
Pain Clinic Assessment: 1. History of Osteoarthritis: NONE History of Rheumatoid Arthritis: NONE 2. Height: 5 ft. 10 in. 177.8 cm. Weight: 199.0 lb. oz. 90.266 kg. Patient's BMI: 28.6 3. Vital Signs: BP: 146/86 Pulse: 53 Resp: 16 Temp: 02 Sat: 110 ECG Mon: 4. Pain Intensity: 3 5. Fall Risk: Dizziness: N Needs help standing or walking: N Fallen in the last 3 months: N Fall risk comments: 6. Patient on Blood Thinner: Clopidogrel Bisulf(Plavix 7. History of Hypertension: Y 8. Opioid Therapy greater than 6 weeks: Y Opiate Contract Signed: 09/16/14 9. Risk Assessment Tool Provided: LOW RISK-1 10. Functional Assessment Tool: 11. Recreational Drug Use: Current within past 3 mos Drug Type: marijuana Tobacco Use: Former Smoker Tobacco Type: Amount or Packs/day: How Many Years: Alcohol Use: No Frequency: Quant:
== END ==
LOC: PAIN 07:45
PROVIDERS: ATTEND Clinical Nurse Specialist Adult Health
DX: G89.4 Chronic pain syndrome (principal); G50.0 Trigeminal neuralgia; F34.89 Other specified persistent mood disorders; F41.9 Anxiety disorder, unspecified; Z87.891 Personal history of nicotine dependence; Z88.8 Allergy status to other drugs, medicaments and biological substances; Z79.82 Long term (current) use of aspirin; Z79.899 Other long term (current) drug therapy